=== PATIENT | female | born 1995 | race Caucasian/White ===

== ENCOUNTER 2022-10-12 17:40 | Inpatient (IN) | payer MEDICAID ==
[~2022-10-12] VITALS: Ht 162.6 cm; Wt 84.4 kg
[2022-10-12] MEDS ORDERED: LACTATED RINGERS 1,000 ML IV SCH (18:05)
[2022-10-12] MEDS ORDERED: METHYLERGONOVINE 0.2 MG/ML AMP IM PRN (18:05)
[2022-10-12] MEDS ORDERED: OXYTOCIN 10 UNITS/ML VIAL IM SCH (18:05)
[2022-10-12] MEDS ORDERED: CARBOPROST 250 MCG/ML AMP IM PRN (18:05)
[2022-10-12] MEDS ORDERED: AMPICILLIN 2,000 MG in NACL 0.9% MINI-BAG PLUS 100 ML IV SCH (18:30)
[2022-10-12] MEDS ORDERED: AMPICILLIN 1,000 MG in NACL 0.9% MINI-BAG PLUS 50 ML IV SCH (20:00)
== END 2022-10-12 18:41 | disposition home or self-care (01) | DRG 566 ==
LOC: MLD 17:40
PROVIDERS: ADMIT Advanced Practice Midwife; ATTEND Advanced Practice Midwife
DX: O48.0 Post-term pregnancy (principal); O47.1 False labor at or after 37 completed weeks of gestation; Z3A.40 40 weeks gestation of pregnancy

== ENCOUNTER 2022-10-17 12:36 | Inpatient (IN) | payer MEDICAID ==
[~2022-10-17] VITALS: Ht 162.6 cm; Wt 85.7 kg
[2022-10-17] MEDS ORDERED: METHYLERGONOVINE 0.2 MG/ML AMP IM PRN (13:15)
[2022-10-17] MEDS ORDERED: CARBOPROST 250 MCG/ML AMP IM PRN (13:15)
[2022-10-17 13:30] VITALS: BP 128/76
[2022-10-17 13:41] LABS: BASOPHILS # (AUTO) 0.1 K/uL (0.00-0.22); BASOPHILS % (AUTO) 0.5 % (0.0-2.0); EOSINOPHILS # (AUTO) 0.3 K/uL (0-0.4); EOSINOPHILS % (AUTO) 2.8 % (0.0-4.0); HEMATOCRIT 36.4 % (36-48); HEMOGLOBIN 12.5 g/dL (12.0-16.0); LYMPHOCYTES # (AUTO) 2.3 K/uL (2.5-16.5); LYMPHOCYTES % (AUTO) 21.6 % (20.5-51.1); MEAN CORPUSCULAR HEMOGLOBIN 32 pg (27-31); MEAN CORPUSCULAR HGB CONC 34 g/dL (33-37); MEAN CORPUSCULAR VOLUME 92.5 fL (80-94); MONOCYTES # (AUTO) 0.5 K/uL (0.8-1.0); MONOCYTES % (AUTO) 4.7 % (1.7-9.3); NEUTROPHILS # (AUTO) 7.4 K/uL (1.8-7.7); NEUTROPHILS % (AUTO) 70.4 % (42.2-75.2); PLATELET COUNT (AUTO) 223 K/uL (140-450); RED BLOOD CELL COUNT(AUTO) 3.94 MIL/uL (4.20-5.40); RED CELL DISTRIBUTION WIDTH 13.9 % (11.6-13.7); WHITE BLOOD COUNT (AUTO) 10.5 K/uL (4.8-10.8)
[2022-10-17 13:44] LABS: APPEARANCE,URINE CLEAR (CLEAR); BILIRUBIN,URINE NEGATIVE (NEGATIVE); BLOOD, URINE NEGATIVE (NEGATIVE); COLOR,URINE YELLOW (YELLOW); LEUKOCYTE ESTERASE ,URINE NEGATIVE (NEGATIVE); NITRITE, URINE NEGATIVE (NEGATIVE); UGLUCOSE NEGATIVE (NEGATIVE)
[2022-10-17] MEDS ORDERED: MISOPROSTOL 25 MCG TAB VG SCH ×2 (14:00)
[2022-10-17 14:04] LABS: ALBUMIN 2.7 g/dL (3.4-5.0); CARBON DIOXIDE 25.2 mmol/L (21-32); CREATININE 0.6 mg/dL (0.6-1.3); POTASSIUM 4.2 mmol/L (3.5-5.1); TOTAL BILIRUBIN 0.6 mg/dL (0.0-1.0)
[2022-10-17] MEDS ORDERED: MORPHINE SULFATE 5 MG/ML VIAL IVP PRN (22:20)
[2022-10-17] MEDS ORDERED: ONDANSETRON 4 MG/2 ML VIAL IVP PRN (22:20)
[2022-10-17] MEDS ORDERED: MORPHINE SULFATE 10 MG/ML VIAL ONE (22:23)
[2022-10-17] MEDS ORDERED: ONDANSETRON 4 MG/2 ML VIAL ONE (22:23)
[2022-10-17 22:28] VITALS: BP 124/67
[2022-10-17] MEDS ORDERED: AMPICILLIN 2,000 MG in NACL 0.9% MINI-BAG PLUS 100 ML IV SCH (22:50)
[2022-10-17] MEDS ORDERED: AMPICILLIN 2,000 MG VIAL ONE (23:00)
[2022-10-18] MEDS: LACTATED RINGERS 1,000 ML IV SCH ×2 (01:07→10:42)
[2022-10-18] MEDS ORDERED: ROPIVACAINE 0.2%/NS PREMIX 200 ML EPI ONE (01:54)
[2022-10-18] MEDS ORDERED: fentaNYL citrate 0.05 MG/ML VIAL ONE (01:55)
[2022-10-18] MEDS ORDERED: AMPICILLIN 1,000 MG VIAL ONE ×3 (03:04→11:22)
[2022-10-18] MEDS: AMPICILLIN 1,000 MG in NACL 0.9% MINI-BAG PLUS 50 ML IV SCH ×3 (03:08→11:27)
[2022-10-18] MEDS ORDERED: OXYTOCIN 20 UNITS/LR PREMIX 1,000 ML IV ONE (05:33)
[2022-10-18] MEDS ORDERED: OXYTOCIN 20 UNITS in LACTATED RINGERS 1,000 ML IV SCH (08:00)
--- NOTE | 2022-10-18 10:46 | NUR ---
PATIENT HAS BEEN SCREENED AND CATEGORIZED LOW NUTRITION RISK. PATIENT WILL BE SEEN WITHIN 7 DAYS OF ADMISSION. 10/24/22 REVIEWED BY SOREN MOS[address]
[2022-10-18] MEDS ORDERED: MEASLES, MUMPS, AND RUBELLA 1 VIAL SQVAC ONE (13:55)
[2022-10-18] MEDS ORDERED: METHYLERGONOVINE 0.2 MG TAB PO PRN (13:55)
[2022-10-18] MEDS ORDERED: BENZOCAINE/MENTHOL 20%-0.5% 60 GM CAN TP PRN (13:55)
[2022-10-18] MEDS: IBUPROFEN 600 MG TAB PO PRN ×2 (14:15→21:05)
[2022-10-18] MEDS ORDERED: METHYLERGONOVINE 0.2 MG/ML AMP IM PRN (18:45)
[2022-10-19] MEDS: IBUPROFEN 600 MG TAB PO PRN ×2 (08:11→21:06)
[2022-10-19] MEDS: DOCUSATE SODIUM 100 MG GELCAP PO PRN ×2 (08:11→21:06)
[2022-10-19 08:24] LABS: HEMATOCRIT 31.3 % (36-48); HEMOGLOBIN 10.5 g/dL (12.0-16.0)
[2022-10-19 09:06] LABS: HEPATITIS B SURFACE ANTIGEN Negative (Negative)
[2022-10-20] MEDS: IBUPROFEN 600 MG TAB PO PRN (08:02)
[2022-10-20] MEDS: DOCUSATE SODIUM 100 MG GELCAP PO PRN (08:02)
== END 2022-10-20 13:50 | disposition home or self-care (01) | DRG 560 ==
LOC: OBSVTOIN 12:36 → MFCC 12:36
PROVIDERS: ADMIT Advanced Practice Midwife; ATTEND Advanced Practice Midwife
PROC: 10E0XZZ Delivery of Products of Conception, External Approach (ICD-10-PCS; principal; 2022-10-17)
PROC: 0HQ9XZZ Repair Perineum Skin, External Approach (ICD-10-PCS; 2022-10-17)
PROC: 3E0R3BZ Introduction of Anesthetic Agent into Spinal Canal, Percutaneous Approach (ICD-10-PCS; 2022-10-17)
PROC: 00HU33Z Insertion of Infusion Device into Spinal Canal, Percutaneous Approach (ICD-10-PCS; 2022-10-17)
DX: O48.0 Post-term pregnancy (principal); Z37.0 Single live birth; O70.0 First degree perineal laceration during delivery; Z20.822 Contact with and (suspected) exposure to COVID-19; Z3A.41 41 weeks gestation of pregnancy; O99.824 Streptococcus B carrier state complicating childbirth; O90.81 Anemia of the puerperium
CPT/HCPCS: 36415; 51702; 59070; 59200; 59409; 76815; 80053; 81003; 85018; 85025; 85610; 85730; 86592; 86762; 86886; 86900; 86901; 87340; 87653-90; J0290; J2270; J2405; J2590; J2795; J3010; J7120; Q0092

== ENCOUNTER 2024-03-15 08:00 | Inpatient (IN) | payer MEDICAID ==
[~2024-03-15] VITALS: Ht 162.6 cm; Wt 83.0 kg
[2024-03-15] MEDS ORDERED: PNV91TAB8 PO (08:35)
[2024-03-15] MEDS ORDERED: CARBOPROST 250 MCG/ML AMP IM PRN (08:35)
[2024-03-15] MEDS ORDERED: METHYLERGONOVINE 0.2 MG/ML AMP IM PRN ×2 (08:35→11:00)
[2024-03-15] MEDS ORDERED: AMPICILLIN 2,000 MG VIAL ONE (09:04)
[2024-03-15] MEDS ORDERED: OXYTOCIN/0.9 % SODIUM CHLORIDE 500 ML IV ONE (09:05)
[2024-03-15 09:17] LABS: BASOPHILS % (AUTO) 0.4 % (0.0-2.0); EOSINOPHILS # (AUTO) 0.1 K/uL (0-0.4); EOSINOPHILS % (AUTO) 0.5 % (0.0-4.0); HEMOGLOBIN 12.6 g/dL (12.0-16.0); LYMPHOCYTES # (AUTO) 1.8 K/uL (2.5-16.5); LYMPHOCYTES % (AUTO) 15.7 % (20.5-51.1); MEAN CORPUSCULAR HEMOGLOBIN 32 pg (27-31); MEAN CORPUSCULAR HGB CONC 34 g/dL (33-37); MEAN CORPUSCULAR VOLUME 92.9 fL (80-94); MONOCYTES # (AUTO) 0.5 K/uL (0.8-1.0); MONOCYTES % (AUTO) 4.4 % (1.7-9.3); PLATELET COUNT (AUTO) 240 K/uL (140-450); RED BLOOD CELL COUNT(AUTO) 3.98 MIL/uL (4.20-5.40); RED CELL DISTRIBUTION WIDTH 14.3 % (11.6-13.7); WHITE BLOOD COUNT (AUTO) 11.4 K/uL (4.8-10.8)
[2024-03-15] MEDS: LACTATED RINGERS 1,000 ML IV SCH (09:23)
[2024-03-15 09:47] LABS: ALBUMIN 2.8 g/dL (3.4-5.0); ANION GAP 14.3 (8-16); CALCIUM 8.4 mg/dL (8.5-10.1); CARBON DIOXIDE 22.2 mmol/L (21-32); CREATININE 0.4 mg/dL (0.6-1.3); POTASSIUM 3.5 mmol/L (3.5-5.1); TOTAL BILIRUBIN 0.6 mg/dL (0.0-1.0); TOTAL PROTEIN, SERUM 6.6 g/dL (6.4-8.2)
[2024-03-15 09:48] LABS: INR 0.87 (0.8-1.2); PARTIAL THROMBOPLASTIN TIME 29.5 secs (22-35.6); PROTHROMBIN TIME 9.2 secs (10.8-13.4)
[2024-03-15] MEDS ORDERED: BENZOCAINE/MENTHOL 20%-0.5% 60 GM CAN TP PRN (11:00)
[2024-03-15] MEDS ORDERED: METHYLERGONOVINE 0.2 MG TAB PO PRN (11:00)
[2024-03-15] MEDS ORDERED: OXYTOCIN/0.9 % SODIUM CHLORIDE 500 ML IV SCH ×2 (11:00→13:20)
[2024-03-15] MEDS ORDERED: OXYTOCIN 10 UNITS/ML VIAL IM PRN (11:00)
[2024-03-15] MEDS ORDERED: MEASLES, MUMPS, AND RUBELLA 1 VIAL SQVAC ONE (11:00)
[2024-03-15] MEDS ORDERED: MEASLES, MUMPS, AND RUBELLA 1 VIAL SQVAC SCH (11:20)
[2024-03-15] MEDS ORDERED: AMPICILLIN 2,000 MG in NACL 0.9% 100 ML IV SCH (12:00)
[2024-03-15] MEDS ORDERED: NACL 0.9% IV SCH (12:00)
[2024-03-15] MEDS ORDERED: AMPICILLIN IV SCH (12:00)
[2024-03-15] MEDS ORDERED: AMPICILLIN 1,000 MG in NACL 0.9% 50 ML IV SCH (12:00)
[2024-03-15 18:22] LABS: BILIRUBIN,URINE NEGATIVE (NEGATIVE); BLOOD, URINE 3+ (NEGATIVE); LEUKOCYTE ESTERASE ,URINE TRACE (NEGATIVE); NITRITE, URINE NEGATIVE (NEGATIVE); PROTEIN,URINE NEGATIVE (NEGATIVE); UGLUCOSE 1+ (NEGATIVE); UROBILINOGEN,URINE 0.2 EU/dL (0.2 - 1)
[2024-03-15 18:23] LABS: APPEARANCE,URINE HAZY (CLEAR); COLOR,URINE SLIGHT BLOODY (YELLOW)
[2024-03-15 18:34] LABS: RBC,URINE TOO NUMEROUS TO COUN /HPF (0-5)
[2024-03-15 18:35] LABS: BACTERIA,URINE None Seen /HPF (None Seen); MUCUS,URINE None Seen /LPF (None Seen); SQUAMOUS EPITHELIAL CELL,UR None Seen /LPF (0-3 (FEW)); WBC,URINE 0-5 /HPF (0-5)
[2024-03-16] MEDS: IBUPROFEN 800 MG TAB PO PRN (01:44)
[2024-03-16 05:44] LABS: HEMATOCRIT 36.4 % (36-48); HEMOGLOBIN 12.4 g/dL (12.0-16.0)
[2024-03-16] MEDS ORDERED: IBUP-1842 PO (11:12)
[2024-03-16] MEDS ORDERED: PREN1SGL93 PO (11:12)
[2024-03-16] MEDS: IBUPROFEN 400 MG TAB PO SCH (17:06)
== END 2024-03-17 15:30 | disposition home or self-care (01) | DRG 560 ==
LOC: MLD 08:00 → OBSVTOIN 08:38 → MFCC 14:53
PROVIDERS: ADMIT Obstetrics & Gynecology; ATTEND Obstetrics & Gynecology
PROC: 10E0XZZ Delivery of Products of Conception, External Approach (ICD-10-PCS; principal; 2024-03-15)
DX: O80 Encounter for full-term uncomplicated delivery (principal); Z37.0 Single live birth; Z3A.39 39 weeks gestation of pregnancy
CPT/HCPCS: 36415; 59409; 80053; 81001; 85018; 85025; 85610; 85730; 86592; 86762; 86886; 86900; 86901; 87340; J0290; J2590